=== PATIENT | female | born 1995 | race Caucasian/White ===

== ENCOUNTER 2024-06-13 00:01 | Inpatient (IN) | payer BC ==
[~2024-06-13 00:01] MED LIST: Terbutaline 1 MG/ML SDV SUBCUT PRN
[2024-06-13] MEDS ORDERED: Misoprostol 50 MCG (1/2 of 100 MCG) Tab PO SCH (00:30)
[2024-06-13 01:00] LABS: HEMATOCRIT 33.4 % (37.0-47.0); HEMOGLOBIN 11.1 g/dL (12.0-16.0); MEAN CORPUSCULAR HEMOGLOBIN 29.2 pg (27.0-34.0); MEAN CORPUSCULAR HGB CONC 33.2 g/dL (33.0-35.0); MEAN CORPUSCULAR VOLUME 87.9 fL (80-100); RED BLOOD CELL COUNT 3.8 10^6/uL (4.2-5.4); WHITE BLOOD CELL COUNT,WBC 12.3 10^3/uL (5.0-10.0)
[2024-06-13] MEDS ORDERED: fentaNYL 100 MCG/2 ML SDV IVPUSH PRN (01:52)
[2024-06-13] MEDS ORDERED: Carboprost Tromethamine 250 MCG/1 ML Amp IM PRN (01:52)
[2024-06-13] MEDS ORDERED: Methylergonovine 0.2 MG/1 ML Amp IM PRN (02:04)
[2024-06-13] MEDS ORDERED: Tranexamic Acid 1,000 MG in Sodium Chloride 0.9% 100 ML IV PRN (02:05)
[2024-06-13] MEDS: Misoprostol 50 MCG (1/2 of 100 MCG) Tab PO ONE (02:05)
[2024-06-13] MEDS ORDERED: Promethazine 25 MG Tab PO PRN (02:07)
[2024-06-13] MEDS: Misoprostol 25 MCG (1/4 of 100 MCG) Tab VAG PRN (06:18)
[2024-06-13] MEDS ORDERED: diphenhydrAMINE 50 MG/ML SDV IVPUSH PRN (08:35)
[2024-06-13] MEDS: hydrOXYzine HCl 25 MG Tab PO PRN (09:41)
[2024-06-13] MEDS: Misoprostol 25 MCG (1/4 of 100 MCG) Tab PO ONE (11:11)
[2024-06-13] MEDS: Penicillin G Potassium 5 MILLUNITS in Sodium Chloride 0.9% 100 ML IV ONE (16:23)
[2024-06-13] MEDS: Sodium Chloride 0.9% 10 ML Syringe FLUSH PRN (16:24)
[2024-06-13] MEDS ORDERED: Ondansetron 4 MG/2 ML SDV IV ONE (16:30)
[2024-06-13] MEDS ORDERED: Ropivacaine 100 ML EPIDUR ONE (16:30)
[2024-06-13] MEDS ORDERED: Oxytocin/Normal Saline 30 UNIT/500 ML BAG IV ONE (16:30)
[2024-06-13] MEDS ORDERED: Phenylephrine 1% 10 MG/ML SDV IV ONE (16:30)
[2024-06-13] MEDS ORDERED: Lidocaine 2% with EPINEPHrine 1:200,000 20 ML SDV NERVRT ONE (16:30)
[2024-06-13] MEDS ORDERED: Dexamethasone 4 MG/ML SDV IV ONE (16:30)
[2024-06-13] MEDS ORDERED: Ketorolac 30 MG/ML SDV IVPUSH ONE (16:30)
[2024-06-13] MEDS: Misoprostol 100 MCG Tab PO ONE (16:42)
[2024-06-13] MEDS: Ondansetron 4 MG/2 ML SDV IVPUSH PRN (17:03)
[2024-06-13] MEDS: Penicillin G Potassium 3 MILLUNITS in Sodium Chloride 0.9% 100 ML IV SCH (20:42)
[2024-06-13] MEDS: Oxytocin/Normal Saline 30 UNIT/500 ML BAG IV SCH (21:32)
[2024-06-13] MEDS: Lactated Ringers 1,000 ML IV SCH (21:33)
[2024-06-13] MEDS: Acetaminophen 325 MG Tab PO PRN (23:34)
[2024-06-14] MEDS: Calcium Carbonate 500 MG Tab.Chew PO PRN (05:01)
[2024-06-14] MEDS: Lactated Ringers 1,000 ML IV ONE (05:50)
[2024-06-14] MEDS ORDERED: Carboprost Tromethamine 250 MCG/1 ML Amp IM PRN (17:36)
[2024-06-14] MEDS ORDERED: Acetaminophen/oxyCODONE 325-5 MG Tab PO PRN (17:36)
[2024-06-14] MEDS ORDERED: Naloxone 2 MG/2 ML Syringe IVPUSH PRN (17:36)
[2024-06-14] MEDS ORDERED: Tranexamic Acid 1,000 MG in Sodium Chloride 0.9% 100 ML IV PRN (17:36)
[2024-06-14] MEDS ORDERED: Pantoprazole 40 MG Tab.CR PO PRN (17:36)
[2024-06-14] MEDS ORDERED: Methylergonovine 0.2 MG/1 ML Amp IM PRN (17:36)
[2024-06-14] MEDS ORDERED: Misoprostol 100 MCG Tab RECTAL PRN (17:36)
[2024-06-14] MEDS ORDERED: diphenhydrAMINE 50 MG/ML SDV IVPUSH PRN (17:36)
[2024-06-14] MEDS ORDERED: Ondansetron 4 MG/2 ML SDV IVPUSH PRN (17:36)
[2024-06-14] MEDS ORDERED: ePHEDrine 50 MG/ML SDV IVPUSH PRN (17:36)
[2024-06-14] MEDS ORDERED: Acetaminophen 325 MG Tab PO PRN (17:36)
[2024-06-14] MEDS: Oxytocin/Normal Saline 30 UNIT/500 ML BAG IV SCH (18:00)
[2024-06-14] MEDS: Ketorolac 30 MG/ML SDV IVPUSH SCH (19:00)
[2024-06-14] MEDS: Lidocaine 1% 30 ML SDV INJECT ONE (19:24)
[2024-06-14] MEDS: Docusate Sodium 100 MG Cap PO PRN (19:59)
[2024-06-14] MEDS: Simethicone 80 MG Tab.Chew PO SCH (20:00)
[2024-06-14] MEDS: Lactated Ringers 1,000 ML IV SCH (20:15)
[2024-06-15 01:23] LABS: HEMATOCRIT 30.6 % (37.0-47.0); HEMOGLOBIN 10.2 g/dL (12.0-16.0); MEAN CORPUSCULAR HEMOGLOBIN 29.6 pg (27.0-34.0); MEAN CORPUSCULAR HGB CONC 33.3 g/dL (33.0-35.0); MEAN CORPUSCULAR VOLUME 88.7 fL (80-100); RED BLOOD CELL COUNT 3.45 10^6/uL (4.2-5.4); WHITE BLOOD CELL COUNT,WBC 25.3 10^3/uL (5.0-10.0)
[2024-06-15 01:26] LABS: CREATININE,URINE RAND 233.49 mg/dL (No establ ref range); PROTEIN CREATININE RATIO,URINE 328.1 mg/g (<150.0); PROTEIN,URINE RANDOM 76.6 mg/dL (0.0-11.9)
[2024-06-15 01:28] LABS: ALBUMIN 1.7 g/dL (3.4-5.0); ANION GAP 13.5 mEq/L (7-13); BILIRUBIN TOTAL 0.3 mg/dL (0.2-1.0); BUN/CREATININE RATIO 14.1 (No establ ref range); CALCIUM 8.1 mg/dL (8.5-10.1); CREATININE 0.85 mg/dL (0.55-1.02); EST CRCL DRUG DOSING (CG) 77.93 mL/min; POTASSIUM,K 4.5 mmol/L (3.5-5.1); PROTEIN TOTAL,TP 5.2 g/dL (6.4-8.2)
[2024-06-15 01:29] LABS: A/G RATIO 0.49
[2024-06-15] MEDS: Labetalol 100 MG Tab PO SCH (01:49)
[2024-06-15] MEDS ORDERED: Metoclopramide 10 MG/2 ML SDV IVPUSH PRN (02:26)
[2024-06-15] MEDS: Promethazine 25 MG/ML SDV IM PRN (02:48)
[2024-06-15] MEDS ORDERED: Loratadine 10 MG Tab PO PRN (09:32)
[2024-06-15] MEDS: Prenatal Multivitamin with Calcium/Folic Acid/Iron Tab PO SCH (09:54)
[2024-06-15] MEDS: Ketorolac 30 MG/ML SDV IVPUSH SCH (11:40)
[2024-06-15] MEDS ORDERED: Ibuprofen 800 MG Tab PO SCH (14:00)
[2024-06-15] MEDS: Ibuprofen 800 MG Tab PO SCH (18:07)
[2024-06-16] MEDS: predniSONE 10 MG Tab PO ONE (10:06)
[2024-06-16] MEDS: Triamcinolone Acetonide 0.1% Crm 15 GM Tube TOP SCH (10:07)
[2024-06-16] MEDS: Acetaminophen/oxyCODONE 325-5 MG Tab PO PRN (10:07)
[2024-06-17] MEDS ORDERED: predniSONE 5 MG Tab PO SCH (08:00)
== END 2024-06-16 12:15 | disposition home or self-care (01) | DRG 540 ==
LOC: DL.OBCHECK 00:01 → UNDOADMOB 00:03 → DL.OB 00:03 → DL.MS 08:00 → OBSVTOIN 06-14 16:53 → UNDOADMOB 06-15 23:00 → DL.MS 06-15 23:00 → UNDODISOB 06-16 12:15
PROVIDERS: ADMIT Student in an Organized Health Care Education/Training Program; ATTEND Student in an Organized Health Care Education/Training Program
PROC: 10H07YZ Insertion of Other Device into Products of Conception, Via Natural or Artificial Opening (ICD-10-PCS; 2024-06-14)
PROC: 10907ZC Drainage of Amniotic Fluid, Therapeutic from Products of Conception, Via Natural or Artificial Opening (ICD-10-PCS; 2024-06-14)
PROC: 3E0R3BZ Introduction of Anesthetic Agent into Spinal Canal, Percutaneous Approach (ICD-10-PCS; 2024-06-14)
PROC: 00HU33Z Insertion of Infusion Device into Spinal Canal, Percutaneous Approach (ICD-10-PCS; 2024-06-14)
PROC: 3E033VJ Introduction of Other Hormone into Peripheral Vein, Percutaneous Approach (ICD-10-PCS; 2024-06-14)
PROC: 10D00Z1 Extraction of Products of Conception, Low, Open Approach (ICD-10-PCS; principal; 2024-06-14 16:15)
DX: O99.824 Streptococcus B carrier state complicating childbirth (principal); O36.63X0 Maternal care for excessive fetal growth, third trimester, not applicable or unspecified; O62.1 Secondary uterine inertia; Z3A.39 39 weeks gestation of pregnancy; Z37.0 Single live birth
CPT/HCPCS: 36415; 51702; 80053; 82570; 84156; 85027; 86850; 86900; 86901; A9270-GY; J1100; J1885; J2371; J2405; J2540; J2550; J2590; J2795; J3490; J7120; J7512